=== PATIENT | female | born 1955 | race Caucasian/White ===

== ENCOUNTER 2019-04-01 15:52 | Inpatient (IN) | payer BC ==
[2019-04-01 17:17] VITALS: BMI 22.8
--- NOTE | 2019-04-01 19:35 | HP ---
COWS - Scale Resting Pulse: 1= [place] 81-100 Sweatin= Chills/Flushing Restless Observation: 1= Difficult to Sit Still Pupil Size: 1= Pupils >than Normal Bone or Joint Aches: 1= Mild Discomfort Runny Nose/ Eye Tearin= Nasal Congestion GI Upset > 30mins: 2= Nausea/Diarrhea Tremor Observation: 2= Slight Tremor Visible Yawning Observation: 1= 1-2x During Session Anxiety or Irritability: 2=Irritable/Anxious Goose Flesh Skin: 0=Smooth Skin COWS Score: 13 CIWA Score Nausea/Vomitin Muscle Tremors: 2 Anxiety: 2 Agitation: 3 Paroxysmal Sweats: 1-Minimal Palms Moist Orientation: 0-Oriented Tacttile Disturbances: 1-Very Mild Itch/Numbness Auditory Disturbances: 0-None Visual Disturbances: 0-None Headache: 2-Mild CIWA-Ar Total Score: 13 - Admission Criteria OASAS Guidelines: Admission for Medically Managed Detox: Requires at least one of the followin. CIWA greater than 12 2. Seizures within the past 24 hours 3. Delirium tremens within the past 24 hours 4. Hallucinations within the past 24 hours 5. Acute intervention needed for co occurring medical disorder 6. Acute intervention needed for co occurring psychiatric disorder 7. Severe withdrawal that cannot be handled at a lower level of care (continued vomiting, continued diarrhea, abnormal vital signs) requiring intravenous medication and/or fluids 8. Admitting History and Physical - Admission Chief Complaint: i need help to stop using vicodin,alcohol and klonopin History of Present Illness: this 63 years old female with vicodin,klonopin,alcohol dependence,seeking detox, withdrawal symptom, last detox [facility] 6 weeks ago denied seizure denied syncope history of multiple medical problem,atrial fibrillation,gerd,depression,anxiety longest sobriety 4 years living with family History Source: Patient Limitations to Obtaining History: No Limitations - Past Medical History [employer]: Yes: Syncope Cardiovascular: Yes: AFIB, Hyperlipdemia Gastrointestinal: Yes: GERD ...: No Psych: Yes: Addictions, Depression Endocrine: Yes: Diabetes Mellitus - Past Surgical History Past Surgical History: Yes: Additional Past Surgical History: tonsillectomy at age 7 years - Smoking History Smoking history: Never smoked Have you smoked in the past 12 months: No - Alcohol/Substance Use Hx Alcohol Use: Yes History of Substance Use: reports: Tranquilizers - Social History Usual Living Arrangement: Yes: With Child ADL: Independent History of Recent Travel: No Admission ROS [facility] - [facility] Chief Complaint: i need help to stop using vicodin,klonopin,alcohol Allergies/Adverse Reactions: Allergies Allergy/AdvReac Type Severity Reaction Status Date / Time No Known Allergies Allergy Verified 04/01/19 17:09 History of Present Illness: this 63 years old female with vicodin dependence,klonopin,alcohol dependence, seeking detox, withdrawal symptom,seeking detox multiple medical problem .atrial fibrillation,gerd,iddm,depression last detox 6 weeks ago,[facility] syncope no seizure has letter from pmd for patient to be detox longest sobriety 4 years would like to rehab after detox Exam Limitations: No Limitations - Ebola screening Have you traveled outside of the country in the last 21 days: No (N) Have you had contact with anyone from an Ebola affected area: No Do you have a fever: No - Review of Systems Constitutional: Chills, Loss of Appetite, Malaise, Night Sweats, Changes in sleep EENT: reports: Tearing, Nose Congestion Respiratory: reports: No Symptoms reported Cardiac: reports: No Symptoms Reported GI: reports: Nausea, Poor Appetite : reports: No Symptoms Reported Musculoskeletal: reports: Back Pain, Muscle Pain Integumentary: reports: Dryness Neuro: reports: Headache, Tremors Endocrine: reports: No Symptoms Reported Hematology: reports: No Symptoms Reported Psychiatric: reports: No Sypmtoms Reported, Judgement Intact, Orientated x3, Anxious, Depressed, other Other Systems: Reviewed and Negative Patient History - Patient Medical History Hx Anemia: No Hx Cancer: No Hx Cardiac Disorders: Yes (atrial fibrillation) Hx Congestive Heart Failure: No Hx Hypertension: No Hx Hypercholesterolemia: No Hx Pacemaker: No HX Cerebrovascular Accident: No Hx Seizures: No Hx Dementia: No Hx Diabetes: Yes (iddm) Hx Gastrointestinal Disorders: Yes (gerd) Hx Liver Disease: No Hx Genitourinary Disorders: No Hx Sexually Transmitted Disorders: No Hx Renal Disease (ESRD): No Hx Thyroid Disease: No Hx Human Immunodeficiency Virus (HIV): No (2019 negative) Hx Hepatitis C: No Hx Depression: Yes (anxiety) Hx Suicide Attempt: No Hx Bipolar Disorder: No Hx Schizophrenia: No Other Medical History: no suicidal,no homicidal - Patient Surgical History Hx Section: Yes (24 years ) Other Surgical History: tonsillectomy at age 87 years old - PPD History Previous Implant?: Yes Documented Results: Negative w/o proof Implanted On Prior [facility] Admission?: No PPD to be Administered?: Yes - Smoking Cessation Smoking history: Never smoked - Substance & Tx. History Hx Alcohol Use: Yes Hx Substance Use: Yes Substance Use Type: Alcohol, Opiates, Tranquilizers Hx Substance Use Treatment: Yes (6 weeks ago [facility]) - Substances abused Alcohol Substance route: Oral Frequency: Daily Amount used: liquor- 1/2 pint, wine-2 litres Age of first use: 13 Date of last use: 04/01/19 Benzodiazepine (Klonopin) Substance route: Oral Frequency: Daily Amount used: 4mg Age of first use: 39 Date of last use: 04/01/19 Other Other (specify): vicodin Substance route: Oral Frequency: Daily Amount used: 30 to 40 mgs Age of first use: 55 Date of last use: 04/01/19 Admission Physical Exam S - Vital Signs Vital Signs: Vital Signs - 24 hr 04/01/19 04/01/19 17:08 18:23 Temperature 99.1 F 99.1 F Pulse Rate 89 89 Respiratory 18 18 Rate Blood Pressure 110/65 110/65 - Physical General Appearance: Yes: Moderate Distress, Tremorous, Irritable, Sweating, Anxious HEENTM: Yes: Normal ENT Inspection, INDIRA, Pharynx Normal Respiratory: Yes: Lungs Clear, Normal Breath Sounds, No Respiratory Distress Neck: Yes: Within Normal Limits, Supple, Trachea in good position Breast: Yes: Breast Exam Deferred Cardiology: Yes: Within Normal Limits, Regular Rate, S1, S2 Abdominal: Yes: Within Normal Limits, Normal Bowel Sounds, Non Tender, Flat, Soft Genitourinary: Yes: Within Normal Limits Back: Yes: Muscle Spasm Musculoskeletal: Yes: Back pain, Muscle Pain Extremities: Yes: Within Normal Limits, Tremors Neurological: Yes: mouthpiece maker II-XII NML intact, Fully Oriented, Alert, Motor Strength 5/5 Integumentary: Yes: Dry Lymphatic: Yes: Within Normal Limits - Diagnostic (1) Opioid dependence with withdrawal Current Visit: Yes Status: Acute (2) Alcohol dependence with uncomplicated withdrawal Current Visit: Yes Status: Acute (3) Uncomplicated sedative, hypnotic or anxiolytic withdrawal Current Visit: Yes Status: Acute (4) Atrial fibrillation Current Visit: Yes Status: Acute (5) Hypercholesterolemia Current Visit: Yes Status: Acute (6) Anxiety and depression Current Visit: Yes Status: Acute (7) IDDM (insulin dependent diabetes mellitus) Current Visit: Yes Status: Acute (8) Syncope Current Visit: Yes Status: Acute Cleared for Admission S - Detox or Rehab [facility] Level of Care: Medically Managed Detox Regimen/Protocol: Methadone/Librium Breathalyzer - Breathalyzer Breathalyzer: 0 Urine Drug Screen - Test Device Lot number: [id number] Expiration date: 12/25/20 - Control Is test valid?: Yes - Results Drug screen NEGATIVE: No Urine drug screen results: MOP-Opiates, OXY-Oxycodone, BZO-Benzodiazepines Inpatient Rehab Admission - Rehab Decision to Admit Inpatient rehab admission?: No
[2019-04-01] MEDS ORDERED: METHADONE HCL 10 MG TABLET (FOR DETOX USE ONLY) PO ONE (20:10)
[2019-04-01] MEDS ORDERED: cloNIDine HCL 0.1 MG TABLET PO PRN (20:10)
[2019-04-01] MEDS ORDERED: MAGNESIUM HYDROX 2400MG/30ML ORAL SUSPENSION 30 ML CUP PO PRN (20:10)
[2019-04-01] MEDS ORDERED: MENTHOL/PHENOL 1 EACH UD MM PRN (20:10)
[2019-04-01] MEDS ORDERED: MAGNESIUM CITRATE 300 ML BOTTLE PO PRN (20:10)
[2019-04-01] MEDS ORDERED: chlordiazePOXIDE HCL 25 MG CAPSULE PO PRN (20:10)
[2019-04-01] MEDS ORDERED: MAG HYDROX/AL HYDROX/SIMETH 30 ML UNIT-DOSE CUP PO PRN (20:10)
[2019-04-01] MEDS ORDERED: MELATONIN 5 MG TABLETS PO PRN (20:10)
[2019-04-01] MEDS: chlordiazePOXIDE HCL 25 MG CAPSULE PO SCH (22:13)
[2019-04-01] MEDS: THIAMINE HCL 100 MG TABLET (FP) PO SCH (22:14)
[2019-04-01] MEDS: APIXABAN PO SCH (23:02)
[2019-04-02] MEDS: chlordiazePOXIDE HCL 25 MG CAPSULE PO SCH ×4 (05:47→22:09)
[2019-04-02 09:59] LABS: HEMATOCRIT 36.3 % (32.4-45.2); HEMOGLOBIN 12.3 GM/dL (10.7-15.3); MCH 31.7 pg (25.7-33.7); MCHC 33.9 g/dl (32.0-36.0); MEAN CELL VOLUME 93.3 fl (80-96); MEAN PLT VOLUME 7.4 fl (7.5-11.1); PLATELET COUNT 201 K/MM3 (134-434); WHITE BLOOD COUNT 8.1 K/mm3 (4.0-10.0)
[2019-04-02] MEDS ORDERED: METHADONE HCL 5 MG TABLET (FOR DETOX USE ONLY) PO ONE (10:00)
[2019-04-02] MEDS ORDERED: LANSOPRAZOLE 15 MG PO SCH (10:00)
--- NOTE | 2019-04-02 10:09 | EKG ---
Test Reason : Blood Pressure : / mmHG Vent. Rate : 069 BPM Atrial Rate : 069 BPM P-R Int : 144 ms QRS Dur : 066 ms QT Int : 378 ms P-R-T Axes : 043 016 030 degrees QTc Int : 405 ms NORMAL SINUS RHYTHM NORMAL ECG NO PREVIOUS ECGS AVAILABLE Confirmed by AMBERLY GONZALES MD ([id number]) on 04/02/2019 10:08:48 AM Referred By: Adria Bagley Confirmed By:AMBERLY GONZALES MD
[2019-04-02 10:13] LABS: ALBUMIN 3.8 g/dl (3.4-5.0); BILIRUBIN,TOTAL 0.8 mg/dL (0.2-1); BLOOD UREA NITROGEN 11.1 mg/dL (7-18); CREATININE 0.7 mg/dL (0.55-1.3); POTASSIUM 4.3 mmol/L (3.5-5.1); TOT PROT 6.6 g/dl (6.4-8.2)
[2019-04-02] MEDS: ONDANSETRON *ODT* 4 MG TABLET SL PRN ×2 (10:22→17:54)
[2019-04-02] MEDS: PRENATAL VITAMINS W/ FOLIC ACID TABLET (FP) PO SCH (10:23)
[2019-04-02] MEDS: PATIENT'S OWN MEDICATION (NON-FORMULARY) (Icosapent Ethyl [Vascepa] 2 GM) PO SCH (10:39)
[2019-04-02] MEDS: APIXABAN PO SCH ×2 (10:40→22:07)
[2019-04-02] MEDS: IRBESARTAN 150 MG PO SCH (10:41)
[2019-04-02] MEDS: LANSOPRAZOLE PO SCH (10:42)
[2019-04-02] MEDS: METOPROLOL SUCCINATE 25 MG PO SCH (10:43)
[2019-04-02] MEDS: ACETAMINOPHEN 325 MG TABLET (FP) PO PRN ×2 (11:20→22:12)
--- NOTE | 2019-04-02 11:35 | PN ---
[facility] CIWA - CIWA Score Nausea/Vomitin-No Nausea/No Vomiting Muscle Tremors: 3 Anxiety: 3 Agitation: 3 Paroxysmal Sweats: 3 Orientation: 0-Oriented Tacttile Disturbances: 0-None Auditory Disturbances: 0-None Visual Disturbances: 0-None Headache: 0-None Present CIWA-Ar Total Score: 12 BHS COWS - Scale Resting Pulse: 1= [place] 81-100 Sweatin= Chills/Flushing Restless Observation: 1= Difficult to Sit Still Pupil Size: 0= Normal to Room Light Bone or Joint Aches: 2= Severe Diffuse Aches Runny Nose/ Eye Tearin= Nasal Congestion GI Upset > 30mins: 0= None Tremor Observation of Outstretched Hands: 1= Tremor [place], Not Seen Yawning Observation: 2= >3x During Session Anxiety or Irritability: 2=Irritable/Anxious Goose Flesh Skin: 0=Smooth Skin COWS Score: 11 S Progress Note (SOAP) Subjective: agitation sweats shakes chills constipation nausea Objective: 04/02/19 11:33 Vital Signs Temperature 98.1 F 04/02/19 09:28 Pulse Rate 81 04/02/19 09:28 Respiratory Rate 18 04/02/19 09:28 Blood Pressure 113/66 04/02/19 09:28 O2 Sat by Pulse Oximetry (%) Laboratory Tests 04/01/19 04/01/19 04/02/19 18:25 19:36 08:15 WBC 8.1 RBC 3.90 Hgb 12.3 Hct 36.3 MCV 93.3 MCH 31.7 MCHC 33.9 RDW 12.0 Plt Count 201 MPV 7.4 L Sodium Potassium Chloride Carbon Dioxide Anion Gap BUN Creatinine Est GFR (CKD-EPI)AfAm Est GFR (CKD-EPI)NonAf POC Glucometer 156 Random Glucose Calcium Total Bilirubin AST ALT Alkaline Phosphatase Total Protein Albumin POC Urine HCG, Qual Negative RPR Titer 04/02/19 04/02/19 08:15 08:15 WBC RBC Hgb Hct MCV MCH MCHC RDW Plt Count MPV Sodium 140 Potassium 4.3 Chloride 105 Carbon Dioxide 29 Anion Gap 6 L BUN 11.1 Creatinine 0.7 Est GFR (CKD-EPI)AfAm 106.12 Est GFR (CKD-EPI)NonAf 91.56 POC Glucometer Random Glucose 106 Calcium 9.0 Total Bilirubin 0.8 AST 30 ALT 38 Alkaline Phosphatase 73 Total Protein 6.6 Albumin 3.8 POC Urine HCG, Qual RPR Titer Nonreactive aaox3 ambulating no acute distress Assessment: 04/02/19 11:33 withdrawals Plan: zofran sl prn increase fluids MOM/mylanta prn stool softener 100mg tid
[2019-04-02] MEDS: DOCUSATE SODIUM 100 MG CAPSULE (FP) PO SCH ×2 (13:21→22:09)
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
[2019-04-02] MEDS ORDERED: PATIENT'S OWN MEDICATION (NON-FORMULARY) (Vortioxetine Hydrobromide [Trintellix] 10 MG) PO SCH (14:00)
[2019-04-02] MEDS ORDERED: metFORMIN HCL 500 MG TABLET (FP) PO SCH ×2 (22:00)
[2019-04-02] MEDS: PATIENT'S OWN MEDICATION (NON-FORMULARY) (Atorvastatin Ca [Lipitor] 40 MG) PO SCH (22:05)
[2019-04-02] MEDS: traZODone HCL 100 MG TABLET (FP) PO SCH (22:09)
[2019-04-02] MEDS: THIAMINE HCL 100 MG TABLET (FP) PO SCH (22:09)
[2019-04-03] MEDS: chlordiazePOXIDE HCL 25 MG CAPSULE PO SCH ×4 (06:07→22:01)
[2019-04-03] MEDS: DOCUSATE SODIUM 100 MG CAPSULE (FP) PO SCH ×3 (06:08→23:31)
[2019-04-03] MEDS ORDERED: VORTIOXETINE HYDROBROMIDE 5 MG PO SCH (10:00)
[2019-04-03] MEDS ORDERED: METHADONE HCL 10 MG TABLET (FOR DETOX USE ONLY) PO ONE (10:00)
[2019-04-03] MEDS ORDERED: PATIENT'S OWN MEDICATION (NON-FORMULARY) (Vortioxetine Hydrobromide [Trintellix] 10 MG) PO SCH (10:02)
[2019-04-03] MEDS: IRBESARTAN 150 MG PO SCH (10:07)
[2019-04-03] MEDS: APIXABAN PO SCH ×2 (10:07→22:00)
[2019-04-03] MEDS: PATIENT'S OWN MEDICATION (NON-FORMULARY) (Icosapent Ethyl [Vascepa] 2 GM) PO SCH (10:07)
[2019-04-03] MEDS: LANSOPRAZOLE PO SCH (10:07)
[2019-04-03] MEDS: PRENATAL VITAMINS W/ FOLIC ACID TABLET (FP) PO SCH (10:08)
[2019-04-03] MEDS: METOPROLOL SUCCINATE 25 MG PO SCH (10:08)
[2019-04-03] MEDS ORDERED: VORTIOXETINE PO SCH (10:30)
--- NOTE | 2019-04-03 11:36 | PN ---
[facility] CIWA - CIWA Score Nausea/Vomitin-No Nausea/No Vomiting Muscle Tremors: 2 Anxiety: 2 Agitation: 2 Paroxysmal Sweats: 1-Minimal Palms Moist Orientation: 0-Oriented Tacttile Disturbances: 0-None Auditory Disturbances: 0-None Visual Disturbances: 0-None Headache: 0-None Present CIWA-Ar Total Score: 7 S COWS - Scale Resting Pulse: 1= [place] 81-100 Sweatin= Chills/Flushing Restless Observation: 1= Difficult to Sit Still Pupil Size: 0= Normal to Room Light Bone or Joint Aches: 1= Mild Discomfort Runny Nose/ Eye Tearin= None GI Upset > 30mins: 0= None Tremor Observation of Outstretched Hands: 1= Tremor [place], Not Seen Yawning Observation: 0= None Anxiety or Irritability: 2=Irritable/Anxious Goose Flesh Skin: 0=Smooth Skin COWS Score: 7 [facility] Progress Note (SOAP) Subjective: interrupted sleep agitation sweats mild shakes Objective: 04/03/19 11:36 Vital Signs Temperature 97.9 F 04/03/19 09:36 Pulse Rate 92 H 04/03/19 09:36 Respiratory Rate 16 04/03/19 09:36 Blood Pressure 112/56 L 04/03/19 09:36 O2 Sat by Pulse Oximetry (%) Laboratory Tests 04/01/19 04/01/19 04/02/19 18:25 19:36 08:15 WBC 8.1 RBC 3.90 Hgb 12.3 Hct 36.3 MCV 93.3 MCH 31.7 MCHC 33.9 RDW 12.0 Plt Count 201 MPV 7.4 L Sodium Potassium Chloride Carbon Dioxide Anion Gap BUN Creatinine Est GFR (CKD-EPI)AfAm Est GFR (CKD-EPI)NonAf POC Glucometer 156 Random Glucose Calcium Total Bilirubin AST ALT Alkaline Phosphatase Total Protein Albumin POC Urine HCG, Qual Negative RPR Titer 04/02/19 04/02/19 04/02/19 08:15 08:15 16:27 WBC RBC Hgb Hct MCV MCH MCHC RDW Plt Count MPV Sodium 140 Potassium 4.3 Chloride 105 Carbon Dioxide 29 Anion Gap 6 L BUN 11.1 Creatinine 0.7 Est GFR (CKD-EPI)AfAm 106.12 Est GFR (CKD-EPI)NonAf 91.56 POC Glucometer 121 Random Glucose 106 Calcium 9.0 Total Bilirubin 0.8 AST 30 ALT 38 Alkaline Phosphatase 73 Total Protein 6.6 Albumin 3.8 POC Urine HCG, Qual RPR Titer Nonreactive 04/03/19 06:05 WBC RBC Hgb Hct MCV MCH MCHC RDW Plt Count MPV Sodium Potassium Chloride Carbon Dioxide Anion Gap BUN Creatinine Est GFR (CKD-EPI)AfAm Est GFR (CKD-EPI)NonAf POC Glucometer 151 Random Glucose Calcium Total Bilirubin AST ALT Alkaline Phosphatase Total Protein Albumin POC Urine HCG, Qual RPR Titer labs noted aaox3 ambulating no acute distress Assessment: 04/03/19 11:36 withdrawals Plan: continue detox increase fluids
[2019-04-03] MEDS: ACETAMINOPHEN 325 MG TABLET (FP) PO PRN ×2 (16:59→22:04)
[2019-04-03] MEDS: BISMUTH SUBSALICYLATE 524 MG/30 ML UD PO PRN ×2 (18:16→22:03)
[2019-04-03] MEDS: PATIENT'S OWN MEDICATION (NON-FORMULARY) (Atorvastatin Ca [Lipitor] 40 MG) PO SCH (22:00)
[2019-04-03] MEDS: traZODone HCL 100 MG TABLET (FP) PO SCH (22:01)
[2019-04-03] MEDS: THIAMINE HCL 100 MG TABLET (FP) PO SCH (23:31)
[2019-04-04] MEDS ORDERED: chlordiazePOXIDE HCL 10 MG CAPSULE PO PRN
[2019-04-04] MEDS ORDERED: METHADONE HCL 5 MG TABLET (FOR DETOX USE ONLY) PO ONE (06:00)
[2019-04-04] MEDS: chlordiazePOXIDE HCL 10 MG CAPSULE PO SCH ×4 (06:12→22:34)
[2019-04-04] MEDS: DOCUSATE SODIUM 100 MG CAPSULE (FP) PO SCH ×2 (06:18→13:57)
[2019-04-04] MEDS: ACETAMINOPHEN 325 MG TABLET (FP) PO PRN ×3 (09:06→21:27)
[2019-04-04] MEDS: PRENATAL VITAMINS W/ FOLIC ACID TABLET (FP) PO SCH (10:01)
[2019-04-04] MEDS: PATIENT'S OWN MEDICATION (NON-FORMULARY) (Icosapent Ethyl [Vascepa] 2 GM) PO SCH (10:02)
[2019-04-04] MEDS: APIXABAN PO SCH ×2 (10:02→21:26)
[2019-04-04] MEDS: VORTIOXETINE PO SCH (10:02)
[2019-04-04] MEDS: LANSOPRAZOLE PO SCH (10:02)
[2019-04-04] MEDS: IRBESARTAN 150 MG PO SCH (10:02)
[2019-04-04] MEDS: METOPROLOL SUCCINATE 25 MG PO SCH (10:04)
--- NOTE | 2019-04-04 10:44 | PN ---
[facility] CIWA - CIWA Score Nausea/Vomitin-No Nausea/No Vomiting Muscle Tremors: 2 Anxiety: 1-Mildly Anxious Agitation: 2 Paroxysmal Sweats: 1-Minimal Palms Moist Orientation: 0-Oriented Tacttile Disturbances: 0-None Auditory Disturbances: 0-None Visual Disturbances: 0-None Headache: 0-None Present CIWA-Ar Total Score: 6 BHS COWS - Scale Resting Pulse: 1= [place] 81-100 Sweatin= No chills or Flushing Restless Observation: 0= Sits Still Pupil Size: 0= Normal to Room Light Bone or Joint Aches: 1= Mild Discomfort Runny Nose/ Eye Tearin= None GI Upset > 30mins: 0= None Tremor Observation of Outstretched Hands: 1= Tremor [place], Not Seen Yawning Observation: 0= None Anxiety or Irritability: 1=Feels Anxious/Irritable Goose Flesh Skin: 0=Smooth Skin COWS Score: 4 S Progress Note (SOAP) Subjective: dry skin sweats diarrhea Objective: 04/04/19 10:43 Vital Signs Temperature 98.1 F 04/04/19 09:21 Pulse Rate 86 04/04/19 09:21 Respiratory Rate 18 04/04/19 09:21 Blood Pressure 97/51 L 04/04/19 09:21 O2 Sat by Pulse Oximetry (%) aaox3 ambulating no acute distress Assessment: 04/04/19 10:44 withdrawals Plan: continue detox increase fluids pepto prn if diarrhea persist.
[2019-04-04] MEDS: VITAMINS A AND D TOPICAL OINTMENT 60 GM TUBE TP SCH ×2 (12:00→17:45)
[2019-04-04] MEDS: METHOCARBAMOL 500 MG TABLET PO PRN ×2 (12:01→22:33)
[2019-04-04] MEDS: PATIENT'S OWN MEDICATION (NON-FORMULARY) (Atorvastatin Ca [Lipitor] 40 MG) PO SCH (21:26)
[2019-04-04] MEDS: THIAMINE HCL 100 MG TABLET (FP) PO SCH (21:26)
[2019-04-04] MEDS: traZODone HCL 100 MG TABLET (FP) PO SCH (21:26)
[2019-04-05] MEDS: DOCUSATE SODIUM 100 MG CAPSULE (FP) PO SCH ×5 (00:10→21:44)
[2019-04-05] MEDS: VITAMINS A AND D TOPICAL OINTMENT 60 GM TUBE TP SCH ×4 (00:15→18:45)
[2019-04-05] MEDS: chlordiazePOXIDE HCL 10 MG CAPSULE PO SCH ×2 (05:43→18:05)
[2019-04-05] MEDS: METOPROLOL SUCCINATE 25 MG PO SCH (10:09)
[2019-04-05] MEDS: LANSOPRAZOLE PO SCH (10:09)
[2019-04-05] MEDS: IRBESARTAN 150 MG PO SCH (10:09)
[2019-04-05] MEDS: PATIENT'S OWN MEDICATION (NON-FORMULARY) (Icosapent Ethyl [Vascepa] 2 GM) PO SCH (10:09)
[2019-04-05] MEDS: APIXABAN PO SCH ×2 (10:09→21:40)
[2019-04-05] MEDS: VORTIOXETINE PO SCH (10:09)
[2019-04-05] MEDS: PRENATAL VITAMINS W/ FOLIC ACID TABLET (FP) PO SCH (10:09)
--- NOTE | 2019-04-05 10:28 | PN ---
[facility] CIWA - CIWA Score Nausea/Vomitin-No Nausea/No Vomiting Muscle Tremors: 1-None Visible, but [place] Anxiety: 1-Mildly Anxious Agitation: 1-Slight > Activity Paroxysmal Sweats: No Perspiration Orientation: 0-Oriented Tacttile Disturbances: 0-None Auditory Disturbances: 0-None Visual Disturbances: 0-None Headache: 0-None Present CIWA-Ar Total Score: 3 S COWS - Scale Resting Pulse: 1= [place] 81-100 Sweatin= No chills or Flushing Restless Observation: 1= Difficult to Sit Still Pupil Size: 0= Normal to Room Light Bone or Joint Aches: 0= None Runny Nose/ Eye Tearin= None GI Upset > 30mins: 0= None Tremor Observation of Outstretched Hands: 1= Tremor [place], Not Seen Yawning Observation: 0= None Anxiety or Irritability: 1=Feels Anxious/Irritable Goose Flesh Skin: 0=Smooth Skin COWS Score: 4 [facility] Progress Note (SOAP) Subjective: anxiety restless Objective: 04/05/19 10:27 Vital Signs Temperature 98.2 F 04/05/19 09:33 Pulse Rate 88 04/05/19 09:33 Respiratory Rate 16 04/05/19 09:33 Blood Pressure 100/64 04/05/19 09:33 O2 Sat by Pulse Oximetry (%) aaox3 ambulating no acute distress Assessment: 04/05/19 10:28 mild withdrawals Plan: continue detox d/c in am
[2019-04-05] MEDS: ACETAMINOPHEN 325 MG TABLET (FP) PO PRN (12:15)
[2019-04-05] MEDS: PATIENT'S OWN MEDICATION (NON-FORMULARY) (Atorvastatin Ca [Lipitor] 40 MG) PO SCH (21:39)
[2019-04-05] MEDS: traZODone HCL 100 MG TABLET (FP) PO SCH (21:39)
[2019-04-05] MEDS: hydrOXYzine PAMOATE 25 MG CAPSULE (FP) PO PRN (21:39)
[2019-04-05] MEDS: THIAMINE HCL 100 MG TABLET (FP) PO SCH (21:45)
[2019-04-06] MEDS: VITAMINS A AND D TOPICAL OINTMENT 60 GM TUBE TP SCH ×3 (00:49→12:53)
[2019-04-06] MEDS ORDERED: chlordiazePOXIDE HCL 10 MG CAPSULE PO ONE (05:00)
[2019-04-06] MEDS: DOCUSATE SODIUM 100 MG CAPSULE (FP) PO SCH ×2 (06:49→13:22)
--- NOTE | 2019-04-06 09:08 | DS ---
[facility] Detox Discharge Summary Admission Date: 04/01/19 Discharge Date: 04/06/19 - History Present History: Alcohol Dependence, Opioid Dependence - Physical Exam Results Vital Signs: Vital Signs Temperature 97.9 F 04/06/19 08:10 Pulse Rate 89 04/06/19 08:10 Respiratory Rate 16 04/06/19 08:10 Blood Pressure 94/52 L 04/06/19 08:10 O2 Sat by Pulse Oximetry (%) Pertinent Admission Physical Exam Findings: Vital Signs Temperature 97.9 F 04/06/19 08:10 Pulse Rate 89 04/06/19 08:10 Respiratory Rate 16 04/06/19 08:10 Blood Pressure 94/52 L 04/06/19 08:10 O2 Sat by Pulse Oximetry (%) Laboratory Tests 04/01/19 04/01/19 04/02/19 18:25 19:36 08:15 WBC 8.1 RBC 3.90 Hgb 12.3 Hct 36.3 MCV 93.3 MCH 31.7 MCHC 33.9 RDW 12.0 Plt Count 201 MPV 7.4 L Sodium Potassium Chloride Carbon Dioxide Anion Gap BUN Creatinine Est GFR (CKD-EPI)AfAm Est GFR (CKD-EPI)NonAf POC Glucometer 156 Random Glucose Calcium Total Bilirubin AST ALT Alkaline Phosphatase Total Protein Albumin POC Urine HCG, Qual Negative RPR Titer 04/02/19 04/02/19 04/02/19 08:15 08:15 16:27 WBC RBC Hgb Hct MCV MCH MCHC RDW Plt Count MPV Sodium 140 Potassium 4.3 Chloride 105 Carbon Dioxide 29 Anion Gap 6 L BUN 11.1 Creatinine 0.7 Est GFR (CKD-EPI)AfAm 106.12 Est GFR (CKD-EPI)NonAf 91.56 POC Glucometer 121 Random Glucose 106 Calcium 9.0 Total Bilirubin 0.8 AST 30 ALT 38 Alkaline Phosphatase 73 Total Protein 6.6 Albumin 3.8 POC Urine HCG, Qual RPR Titer Nonreactive 04/03/19 04/03/19 04/04/19 06:05 16:40 06:10 WBC RBC Hgb Hct MCV MCH MCHC RDW Plt Count MPV Sodium Potassium Chloride Carbon Dioxide Anion Gap BUN Creatinine Est GFR (CKD-EPI)AfAm Est GFR (CKD-EPI)NonAf POC Glucometer 151 122 133 Random Glucose Calcium Total Bilirubin AST ALT Alkaline Phosphatase Total Protein Albumin POC Urine HCG, Qual RPR Titer 04/04/19 04/05/19 04/05/19 16:35 05:07 16:35 WBC RBC Hgb Hct MCV MCH MCHC RDW Plt Count MPV Sodium Potassium Chloride Carbon Dioxide Anion Gap BUN Creatinine Est GFR (CKD-EPI)AfAm Est GFR (CKD-EPI)NonAf POC Glucometer 143 152 145 Random Glucose Calcium Total Bilirubin AST ALT Alkaline Phosphatase Total Protein Albumin POC Urine HCG, Qual RPR Titer 04/06/19 06:45 WBC RBC Hgb Hct MCV MCH MCHC RDW Plt Count MPV Sodium Potassium Chloride Carbon Dioxide Anion Gap BUN Creatinine Est GFR (CKD-EPI)AfAm Est GFR (CKD-EPI)NonAf POC Glucometer 132 Random Glucose Calcium Total Bilirubin AST ALT Alkaline Phosphatase Total Protein Albumin POC Urine HCG, Qual RPR Titer aaox3 ambulating no acute distress - Treatment Hospital Course: Detox Protocol Followed, Detoxed Safely, Responded well, Discharged Condition Good, Rehab Referral Accepted Patient has Accepted a Rehab Referral to: [facility] - Medication Discharge Medications: Ambulatory Orders Apixaban [Eliquis -] 5 mg PO BID 04/01/19 Atorvastatin Ca [Lipitor] 40 mg PO HS 04/01/19 Dulaglutide [Trulicity] 1.5 mg SQ WEEKLY 04/01/19 Icosapent Ethyl [Vascepa] 2 gm PO BID 04/01/19 Irbesartan [Avapro (Nf) -] 150 mg PO DAILY 04/01/19 Lansoprazole [Prevacid -] 15 mg PO DAILY 04/01/19 Metformin HCl [Glucophage] 500 mg PO QID 04/01/19 Metoprolol Succinate [Toprol Xl] 25 mg PO DAILY 04/01/19 Pantoprazole Sodium [Protonix] 40 mg PO DAILY 04/01/19 Sodium Bicarbonate - 325 mg PO DAILY 04/01/19 Vortioxetine Hydrobromide [Trintellix] 10 mg PO DAILY 04/01/19 traZODone HCL [Trazodone HCl] 100 mg PO HS 04/01/19 - Diagnosis (1) Alcohol dependence with uncomplicated withdrawal Current Visit: Yes Status: Chronic (2) Anxiety and depression Current Visit: Yes Status: Acute (3) Opioid dependence with withdrawal Current Visit: Yes Status: Chronic (4) Substance induced mood disorder Current Visit: Yes Status: Acute (5) Substance-induced sleep disorder Current Visit: Yes Status: Acute (6) Syncope Current Visit: Yes Status: Acute (7) Uncomplicated sedative, hypnotic or anxiolytic withdrawal Current Visit: Yes Status: Chronic (8) Atrial fibrillation Current Visit: Yes Status: Chronic (9) IDDM (insulin dependent diabetes mellitus) Current Visit: Yes Status: Chronic (10) MDD (major depressive disorder) Current Visit: Yes Status: Chronic - AMA Did Patient Leave Against Medical Advice: No
[2019-04-06] MEDS: PATIENT'S OWN MEDICATION (NON-FORMULARY) (Icosapent Ethyl [Vascepa] 2 GM) PO SCH (10:04)
[2019-04-06] MEDS: APIXABAN PO SCH (10:05)
[2019-04-06] MEDS: IRBESARTAN 150 MG PO SCH (10:06)
[2019-04-06] MEDS: PRENATAL VITAMINS W/ FOLIC ACID TABLET (FP) PO SCH (10:08)
[2019-04-06] MEDS: LANSOPRAZOLE PO SCH (10:08)
[2019-04-06] MEDS: METOPROLOL SUCCINATE 25 MG PO SCH (10:08)
[2019-04-06] MEDS: VORTIOXETINE PO SCH (10:09)
[2019-04-06] MEDS: hydrOXYzine PAMOATE 25 MG CAPSULE (FP) PO PRN (10:10)
[2019-04-06] MEDS: ACETAMINOPHEN 325 MG TABLET (FP) PO PRN (10:51)
[2019-04-06] MEDS: METHOCARBAMOL 500 MG TABLET PO PRN (13:22)
[2019-04-06] MEDS ORDERED: GABAPENTIN 100 MG CAPSULE (FP) PO ONE (14:36)
[2019-04-06 14:59] VITALS: BP 136/88; PULSE 88; TEMP 98.2
== END 2019-04-06 16:55 | disposition home or self-care (01) | DRG 773 ==
LOC: YASAS 15:52 → Y6N 19:52
PROVIDERS: ADMIT Allergy & Immunology; ATTEND Allergy & Immunology
PROC: HZ2ZZZZ Detoxification Services for Substance Abuse Treatment (ICD-10-PCS; principal; 2019-04-01)
DX: F11.23 Opioid dependence with withdrawal (principal); F10.230 Alcohol dependence with withdrawal, uncomplicated; F13.230 Sedative, hypnotic or anxiolytic dependence with withdrawal, uncomplicated; F41.9 Anxiety disorder, unspecified; F32.9 Major depressive disorder, single episode, unspecified; F19.24 Other psychoactive substance dependence with psychoactive substance-induced mood disorder; F19.282 Other psychoactive substance dependence with psychoactive substance-induced sleep disorder; E11.9 Type 2 diabetes mellitus without complications; I48.91 Unspecified atrial fibrillation; K21.9 Gastro-esophageal reflux disease without esophagitis; E78.5 Hyperlipidemia, unspecified; Z79.4 Long term (current) use of insulin
CPT/HCPCS: 36415; 80053; 81025; 82962; 85027; 86593; 93005; 93010; Q0162